=== PATIENT | male | born 1955 | race Caucasian/White ===

== ENCOUNTER 2024-10-03 10:32 | Outpatient (AMB) | payer MEDICARE, BC, SELFPAY ==
[2024-10-03 11:38] VITALS: BP 143/78; PULSE 73; RESP 18; TEMP 36.4; O2SAT 97; BMI 34.6
--- NOTE | 2024-10-03 11:38 | PD.ORTHCLVIS ---
Vital signs 10/03/24 11:38 Height 1.85 m Height Method Stated Weight 119.011 kg Weight Measurement Method Standing Scale BMI 34.6 BP 143/78 H Blood Pressure Source Automatic Cuff Blood Pressure Location Right Upper Arm Position Sitting Respiration 18 Pulse 73 Pulse Source Monitor Temp 97.6 F Temp Source Temporal Artery Scan Pulse Oximetry (%) 97 Oxygen Delivery Method Room Air Med/Allergies Allergies & Medications Allergies No Known Drug Allergies Allergy (Verified 10/03/24 11:39) Medication Reconciliation meloxicam 15 mg tablet 15 mg PO QDAY 10/03/24 [History Confirmed 10/03/24] tamsulosin 0.4 mg capsule 0.4 mg PO QHS 10/03/24 [History Confirmed 10/03/24] Subjective Visit Visit for: new patient and knee Immunization / Flu Flu Vaccine in the Last 12 Months: Yes Flu Vaccine Exclusion Criteria: Already Received History of Present Illness Chief complaint: KNEE PAIN Emanuel is a pleasant 69-year-old male with bilateral knee pain worse on the left. This been ongoing for over 4 years. Has had multiple injections of both cortisone and gel. They only last for a short period time at this point. The pain is affecting his quality life and happiness. He reports that his knees have been curving inward quite a bit Pain Pain level (0-10): 8 Pain duration: CONSTANT Pain location: inside (medial), outside (lateral) and anterior Pain quality: sharp, dull and aching Pain timing: night, increases with activity and stairs Associated signs & symptoms: numbness, weakness and stiffness Ambulatory data Ambulatory device: none Treatments Number of previous injections: 3 Improvement with previous injections: Yes Improvement with PT: No Improvement with NSAIDS: n/a Review of Systems Review of Systems: All systems negative unless otherwise noted in HPI. Exam Exam Patient is in no acute distress and is cooperative with the examination today. Breathing is nonlabored. In no respiratory distress. Bilateral extremities were evaluated and demonstrates sensation intact to light touch. Palpable pedal pulses are present. No significant edema is present. Bilateral hips were examined. The patient has no pain with log roll of the hips. Internal rotation to 30 degrees and external rotation to 30 degrees is painless. Negative FADIR. The left knee was examined. The left knee is in [varus] alignment. Range of motion from [0-115] degrees. Knee is stable to varus and valgus as well as AP translation with <5mm. Patient has a [negative] McMurrays. There is [no] pain with patellofemoral compression and [no] crepitus noted. The knee is [tender] to palpation [medially]. The right knee was also examined. The right knee is in [varus] alignment. Range of motion from [0-120] degrees. Knee is stable to varus and valgus as well as AP translation with <5mm. Patient has a [negative] McMurrays. There is [no] pain with patellofemoral compression and [no] crepitus noted. The knee is [tender] to palpation [medially]. Bilateral knee x-rays demonstrates impressive varus deformity bilaterally. This is worse on the left compared to the right. There is marked obliteration of the medial joint space and osteophytes both medially and laterally Assessment and Plan Problem List (1) Degenerative arthritis of knee, bilateral: Status: Acute Plan: Patient is a 69-year-old male with bilateral knee pain and bilateral knee arthritis. We discussed nonoperative and operative options. Given the failure of conservative management and everything is tried including anti-inflammatories, cortisone, and gel injections, we recommend total knee replacement is a reasonable option. We will start on the left as this pain is significantly worse than the right The nature and purpose of the total knee replacement, alternative method(s) of treatment, the material risks involved, and the possibility of complications were fully explained to the patient. The patient does NOT have any of the following contraindications to TKA: - Active infection of the knee joint, OR - Active systemic bacteremia, OR - Active skin infection or open wound at surgical site, OR - Neuropathic arthritis, OR - Severe, rapidly progressive neurological disease, OR - Severe medical condition that makes risks of surgery outweigh the potential benefit The patient was told the most common risks and complications associated with a total knee replacement include, but are not limited to: blood clots in the leg, fatal pulmonary embolism, dislocation of the prosthesis, intraoperative and postoperative fractures of the femur or tibia, infection, failure of the prosthesis or grafting materials, complications from anesthesia, reactions to blood transfusions, postoperative leg length inequality, instability of the knee replacement, nerve damage or injury, vascular injury, delayed wound healing, infection, other injury or even . In addition, there are risks associated with anesthesia given during this operation. Also, the patient was told that after undergoing a total knee replacement there may still be persistent pain or disability. The patient was informed that the success of this operation in part depends upon the mechanical devices which are going to be implanted and that these devices can fail or malfunction, and may need to be repaired or replaced and there are no guarantees as to the longevity of this device or its parts and that it or its parts could fail prematurely. The patient was also notified that during the course of surgery, there may be a need to use bone graft from donors, and that any bone graft used will be carefully screened for communicable diseases, including AIDS, hepatitis, Arpit-Creutzfeldt, or other diseases, but despite the screening procedures, there is a small chance that they could contract one of these diseases. Finally, the patient was asked to follow completely and fully with all advice and recommended treatments, and that recovery and ultimate outcome are affected by their compliance with recommended treatment. We discussed the risks, benefits and treatment alternatives, and the patient is interested in proceeding with surgery. We will try to set this up as expeditiously as possible. Advanced Care Planning Discussion Advance care planning discussed with:: patient Office Procedures GNS Level of Care Nursing/Assessment Patient Status: Initial/New Patient Nursing Assessment/Reassesment: Medication Reconciliation, Update PMH in EMR and Vital Signs Coordination of Care: Complex Care and Chronic Disease 1-5, Education Complex Pt/Fam, Consent,records obtained, informed consent, Results/Orders obtained and Staff clarify orders New Patient Charge New Patient Point Assignment: 1094 New Patient Point Charge: HOSPITAL SUPERVISOR Level 3 ([id number]) Past Medical History Past Medical History Have you ever been diagnosed with any of the following: Genital/Urinary Problems Benign Prostatic Hyperplasia: Yes
== END 2024-10-03 11:50 | disposition home or self-care (01) ==
PROVIDERS: PCP Family Medicine; Referring Provider Family Medicine; Supervising Provider Orthopaedic Surgery Adult Reconstructive Orthopaedic Surgery; Visit Provider Orthopaedic Surgery Adult Reconstructive Orthopaedic Surgery
DX: M17.0 Bilateral primary osteoarthritis of knee (principal); M25.562 Pain in left knee; M25.561 Pain in right knee
CPT/HCPCS: 99203; G0463

== ENCOUNTER → 2024-10-09 | Outpatient (CLI) | payer MEDICARE, BC, SELFPAY ==
--- NOTE | 2024-10-09 | XR_ITS ---
Examination: PA lateral chest 2 views TECHNIQUE: Upright PA lateral chest 2 views Exam date and time: October 09, 2024 1243 hours INDICATIONS: Preop knee surgery FINDINGS: Normal heart size. Lungs are clear. The osseous structures are intact IMPRESSION: No active disease
== END | disposition home or self-care (01) ==
PROVIDERS: PCP Family Medicine; Referring Provider Internal Medicine; Visit Provider Internal Medicine
DX: R05.9 Cough, unspecified (principal)
CPT/HCPCS: 71046

== ENCOUNTER → 2024-10-16 | Outpatient (CLI) | payer MEDICARE, BC, SELFPAY ==
--- NOTE | 2024-10-16 07:30 | XR_ITS ---
Examination: CT left lower extremity, without contrast. 2-D sagittal reconstructions. 2-D coronal reconstructions. 3-D reconstructions. Date and time of exam:October 16, 2024 0749 hours INDICATIONS: Left knee pain beginning 5 years ago CTDI: vol (mGy):14.4 DLP: (mGycm):1241 Technique: Multiple 1.25 mm axial sections of the left lower extremity have been obtained. 2-D sagittal and coronal reconstructions have been obtained. 3-D reconstructions have been obtained. Low dose protocols were performed. One or more of the following dose reduction techniques were used; automated exposure control, adjustment of the mA and/or KV according to patient size, use of iterative reconstruction technique. Findings: Moderate osteopenia Mild to moderate narrowing left hip joint No left hip fracture or dislocation Advanced tricompartment osteoarthritis including severe narrowing medial joint space No knee fracture IMPRESSION: Advanced tricompartment osteoarthritis left knee
== END | disposition home or self-care (01) ==
LOC: CCTX 07:11
PROVIDERS: PCP Family Medicine; Referring Provider Orthopaedic Surgery Adult Reconstructive Orthopaedic Surgery; Visit Provider Orthopaedic Surgery Adult Reconstructive Orthopaedic Surgery
DX: M17.12 Unilateral primary osteoarthritis, left knee (principal)
CPT/HCPCS: 73700

== ENCOUNTER → 2024-10-27 | Outpatient (CLI) | payer MEDICARE, BC, SELFPAY ==
--- NOTE | 2024-10-27 14:02 | XR_ITS ---
Examination: CT left lower extremity, without contrast. 2-D sagittal reconstructions. 2-D coronal reconstructions. 3-D reconstructions. Date and time of exam: October 27, 2024 1420 hours INDICATIONS: Left knee pain osteoarthritis years CTDI: vol (mGy):34.31 DLP: (mGycm):1225 Technique: Multiple 1.25 mm axial sections of the left lower extremity without intravenous contrast have been obtained. 2-D sagittal and coronal reconstructions have been obtained. 3-D reconstructions have been obtained. Low dose protocols were performed. One or more of the following dose reduction techniques were used; automated exposure control, adjustment of the mA and/or KV according to patient size, use of iterative reconstruction technique. Findings: Moderate osteopenia Moderate narrowing left hip joint No left hip fracture or dislocation No avascular necrosis Left knee advanced tricompartment osteoarthritis Severe narrowing medial joint space No fracture No patellar dislocation IMPRESSION: Advanced left knee tricompartment osteoarthritis, including severe narrowing medial joint space
== END | disposition home or self-care (01) ==
PROVIDERS: PCP Family Medicine; Referring Provider Orthopaedic Surgery Adult Reconstructive Orthopaedic Surgery; Visit Provider Orthopaedic Surgery Adult Reconstructive Orthopaedic Surgery
DX: M17.12 Unilateral primary osteoarthritis, left knee (principal); M25.862 Other specified joint disorders, left knee
CPT/HCPCS: 73700

== ENCOUNTER 2024-11-03 07:00 | Day surgery (SDC) | payer MEDICARE, BC, SELFPAY ==
[2024-10-31 10:44] VITALS: BMI 34.9
[2024-10-31 11:37] LABS: Basophils # (Auto) 0.1 Thou/mm3 (0.0-0.2); Basophils % (Auto) 1 % (0-2.5); Eosinophils # (Auto) 0.2 Thou/mm3 (0.0-0.5); Eosinophils % (Auto) 3 % (0-10); Hematocrit 40.8 % (41.0-53.0); Hemoglobin 13.8 g/dL (13.5-16.0); Immature Granulocytes % (Auto) 1 % (0-0); Immature Granulocytes Auto 0.03 Thou/mm3 (0.00-0.00); Lymphocytes # (Auto) 1.3 Thou/mm3 (1.0-4.8); Lymphocytes % (Auto) 20 % (10-50); Mean Corpuscular HGB Conc 33.8 g/dl (31.0-37.0); Mean Corpuscular Hemoglobin 31.4 pg (25.0-35.0); Mean Corpuscular Volume 93 fL (80-100); Monocytes # (Auto) 0.7 Thou/mm3 (0.0-0.8); Monocytes % (Auto) 11 % (0-12); Neutrophils # (Auto) 4.2 Thou/mm3 (1.8-7.7); Neutrophils % (Auto) 64 % (37-80); Nucleated Red Blood Cell % 0 /100 WBC (0); Platelet Count 246 Thou/mm3 (140-440); RDW Standard Deviation 42.8 fL (35.1-43.9); White Blood Count 6.6 Thou/mm3 (3.8-10.6)
[2024-10-31 11:48] LABS: INR 0.9 (0.9-1.3); Partial Thromboplastin Time 27.1 Seconds (22.0-36.0); Prothrombin Time 10.3 Seconds (9.0-12.2)
[2024-10-31 12:17] LABS: Alanine Aminotransferase 24 U/L (10-49); Albumin, Serum 4.2 gm/dL (3.4-4.8); Albumin/Globulin Ratio 1.8 (1.2-2.2); Alkaline Phosphatase 81 U/L (46-116); Anion Gap 7 (7-16); Aspartate Amino Transferase 24 U/L (0-34); BUN/Creatinine Ratio 21 Ratio (12-20); Bilirubin,Total 0.4 mg/dL (0.3-1.2); Blood Urea Nitrogen 21 mg/dL (9-23); Calcium 9.4 mg/dL (8.3-10.6); Calcium (Corrected) 9.4 mg/dL (8.5-10.1); Carbon Dioxide 27.2 mMol/L (20.0-31.0); Chloride 106 mMol/L (98-107); Estimated Creatinine Clearance 97.4 mL/min (>60); Globulin 2.3 gm/dL (2.3-3.5); Glucose 75 mg/dL (74-106); Osmolality,Calculated 281 (275-295); Potassium 4.6 mMol/L (3.4-5.1); Sodium 140 mMol/L (136-145); Total Protein 6.5 gm/dL (5.7-8.2); eGFR > 60 See Note
[2024-11-03] VITALS (12 sets, daily range): BP systolic 137–178; BP diastolic 71–98; PULSE 66–84; RESP 13–20; TEMP 36.2–36.6; O2SAT 97–99; BMI 34.3
[2024-11-03] MEDS: ACETAMINOPHEN 325 MG TABLET 650 MG PO (07:22)
[2024-11-03] MEDS: PREGABALIN 75 MG CAPSULE PO (07:23)
[2024-11-03] MEDS: MELOXICAM 7.5 MG TABLET PO (07:23)
[2024-11-03] MEDS: RINGERS LACTATED 1000 ML 1,000 ML 20 ML IV (07:24)
--- NOTE | 2024-11-03 10:30 | ESOP_ITS ---
Date of Procedure 11/03/24 Pre Op Diagnosis left knee osteoarthritis Post Op Diagnosis left knee osteoarthritis Procedure left total knee replacement Findings full thickness cartilage loss and extensive osteophytes Procedure Description Indication: The patient is a 69 year old who has a long history of left knee pain. X-rays show degenerative arthritis involving the knee. Over the past several years the patient has had increasing pain, progressive limitation in function. He has failed conservative measures including activity modification, physical therapy, injections, anti-inflammatories, and assistive devices. After a lengthy discussion of the risks and benefits, the patient presents now for total knee replacement. The nature and purpose of the total knee replacement, alternative method(s) of treatment, the material risks involved, and the possibility of complications were fully explained to the patient. The patient was told the most common risks and complications associated with a total knee replacement include, but are not limited to blood clots in the leg, fatal pulmonary embolism, dislocation of the prosthesis, intraoperative and postoperative fractures of the femur or tibia, infection, failure of the prosthesis or grafting materials, complications from anesthesia, reactions to blood transfusions, postoperative leg length inequality, instability of the knee replacement, nerve damage or injury, vascular injury, delayed wound healing, infections, other injury or even . In addition, there are risks associated with anesthesia given during this operation, temporary or permanent numbness on the skin lateral to the incision can be a complication unique to total knee surgery, and kneeling can be painful after knee replacement surgery. Also, the patient was told that after undergoing a total knee replacement there may still be pain or disability. We discussed with the patient that we will be using a robot-assisted technology. We discussed that there is a possibility of converting to manual instrumentation. The patient was informed that the success of this operation in part depends upon the mechanical devices which are going to be implanted and that these devices can fail or malfunction, and may need to be repaired or replaced and there are no guarantees as to the longevity of this device or its part and that it or its parts could fail prematurely. Finally, the patient was asked to follow completely and fully with all advice and recommended treatments, and that recovery and ultimate outcome are affected by their compliance with recommended treatment. Surgical technique: Patient was marked and consented in the pre-operative area. The patient was brought to the operating room and placed on the operating table in a supine position. Prior to positioning, a timeout procedure was performed between the surgeon, the anesthesiologist, and the nursing staff where the patient and the operative side were identified and confirmed. After adequate general anesthetic was obtained, the left lower extremity was prepped and draped in the usual sterile fashion. A weight based dose of Cefazolin were administered within 1 hour prior to incision. The robot was preregistered and calirated before the incision. The extremity was exsanguinated with an esmarch badge and tourniquet inflated to 250mmHg. A midline incision was made. A median parapatellar arthrotomy was made. The patella was subluxed laterally. A medial release was performed to expose the medial tibia. His femoral and tibial pins were placed through an intra incisional manner for both cases. Every effort was made to ensure that the distalmost aspect of the pin was hung in the second cortex. The arrays were then tightened several times to ensure that it was fixed for the remainder of the case. Both femoral and tibial checkpoints were then placed. We then went through the registration process of the bone. We then assessed the knee deformity and attempted to correct it. We also used the robot to aid in judging laxity in both extension and flexion. Final based on laxity and alignment we changed the preoperative assessment to obtain proper proper implant positioning and to correct deformity. Attention was then placed to the tibia. We made a tibial cut using the robot ensuring that both the MCL and the patella tendon were protected with retractors. We then went to the femur and made the posterior cut followed by the anterior cut and the anterior chamfer. The bone was then removed and we made a distal femur cut and a posterior chamfer cut. We verified all cuts. A trial reduction was performed with a size 6 femoral component and a size 6 keeled tibial component. The patella tracked centrally, and no lateral retinacular release was necessary. The trial implants were removed. The arrays, pins, and checkpoints were all removed. We performed a verification that all pins were removed. The cut bone surfaces were lavaged. A size 6 left femoral component, a size 6 keeled tibial component were impacted into position. The knee was felt to be well balanced in the sagittal and coronal plane. The final 6x10 mm cruciate- substituting articular insert was impacted into the tibial tray. The knee was brought out to full extension, flexed up to 120 degrees. It was stable to varus and valgus stress and appropriately balanced in flexion and extension. The wounds were copiously irrigated following deflation of tourniquet. The medial retinaculum was reapproximated with #1 vicryl and quill. The subcutaneous tissues were closed with 0 and 2-0 interrupted Vicryl. The skin was closed with 3-0 Monofilament V loc suture. A sterile dressing was applied. The patient was transferred to a bed and brought to recovery in stable condition. The patient tolerated the procedure well. There were no intraoperative complications. Sponge and needle counts were correct times 2. As the attending surgeon, Brianna perrin I was present and performed the entire operation. Grafts/Implants Size 6 CR Femur Size 6 Tibia 10mm poly CS Anesthesia spinal Drains none Implants aniya Pathology / specimen None Estimated Blood Loss 150 Condition Stable Disposition same day Surgeon Too Thomas MD Surgical Staff Operation Date: 11/03/24 10:30 Case Staff TECHNICAL SOURCING RECRUITER: Jonathan Romano RN First Assistant: Indu Angulo
--- NOTE | 2024-11-03 10:39 | XR_ITS ---
Examination: Left knee 2 views Technique one AP lateral left knee 2 views Exam date and time: November 03, 2024 1104 hours INDICATIONS: Postop knee arthroplasty FINDINGS: Prominent osteopenia Total left knee arthroplasty. Satisfactory alignment No fracture IMPRESSION: Total left knee arthroplasty with satisfactory alignment
--- NOTE | 2024-11-03 10:53 | SUR.PHASEI ---
1053: Pt. AAOx4, vitals stable, breathing unlabored, no complaint of pain or nausea, dressing to left knee CDI, no active bleed noted, pt. able to wiggle bilateral toes, dorsalis pedis pulses strong and regular bilaterally, cap refill to bilateral feet less than 3 seconds, report received from Ruslan JAFFE and Melissa LUCAS.
--- NOTE | 2024-11-03 12:56 | SUR.PHASEII ---
1256 Report received from Triny LUCAS, to assume care over patient
--- NOTE | 2024-11-03 12:56 | SUR.PHASEII ---
1256: Report given to Alissa Prather RN, pt. AAOx4, vitals stable, breathing unlabored, no complaint of pain or nausea, dressing to left knee CDI, no active bleed noted, pt. waiting for PT.
--- NOTE | 2024-11-03 13:13 | SUR.PHASEII ---
1313 patient cleared by PT to proceed with discharge
--- NOTE | 2024-11-03 13:20 | SUR.PHASEII ---
1320 Patient meets discharge criteria from recovery, awake and alert, breathing unlabored, vital signs stable, denies pain, dressing intact; no bleeding noted, denies nausea, patient voided in the restroom prior to discharge, patient assisted with dressing into his clothing by his partner, discharge instructions given to patient and patients partner, partner signed discharge instructions. Patient given all his belongings, prior to discharge, transported via wheelchair and left in a private vehicle.
== END 2024-11-03 13:20 | disposition home or self-care (01) ==
PROVIDERS: Anesthesiology; PCP Family Medicine; Referring Provider Orthopaedic Surgery Adult Reconstructive Orthopaedic Surgery; Visit Provider Orthopaedic Surgery Adult Reconstructive Orthopaedic Surgery
PROC: (CPT 27447; principal; 2024-11-03 10:15)
DX: M17.12 Unilateral primary osteoarthritis, left knee (principal); M25.762 Osteophyte, left knee
CPT/HCPCS: 27447; 20985; 36415; 73560; 80053; 85025; 85610; 85730; 97162; A4217; C1713; C1776; J0171; J0690; J1100; J1200; J1885; J2405; J2704; J2795; J3010; J3490; J7030; J7120; A4648; A4649; A9270

== ENCOUNTER 2024-11-18 10:56 | Outpatient (AMB) | payer MEDICARE, BC, SELFPAY ==
--- NOTE | 2024-11-18 11:14 | PD.ORTHCLVIS ---
Vital signs 11/18/24 11:15 Height 1.85 m Height Method Stated Weight 116.205 kg Weight Measurement Method Standing Scale BMI 33.9 BP 144/76 H Blood Pressure Source Automatic Cuff Blood Pressure Location Left Upper Arm Position Sitting Respiration 19 Pulse 81 Pulse Source Monitor Temp 98.4 F Temp Source Temporal Artery Scan Pulse Oximetry (%) 96 Oxygen Delivery Method Room Air Med/Allergies Allergies & Medications Allergies No Known Drug Allergies Allergy (Verified 11/18/24 11:21) Medication Reconciliation meloxicam 15 mg tablet 15 mg PO QDAY 10/03/24 [History Confirmed 11/18/24] tamsulosin 0.4 mg capsule 0.4 mg PO QHS 10/03/24 [History Confirmed 11/18/24] acetaminophen 500 mg tablet (Acetaminophen Extra Strength) 1,000 mg (2 x 500 mg) PO Q6H PRN pain #90 tabs 11/03/24 [Rx Confirmed 11/18/24] aspirin 81 mg tablet,delayed release 81 mg PO BID #60 tabs 11/03/24 [Rx Confirmed 11/18/24] doxycycline hyclate 100 mg tablet 100 mg PO BID #14 tabs 11/03/24 [Rx Confirmed 11/18/24] gabapentin 300 mg capsule 300 mg PO .qhs #30 caps 11/03/24 [Rx Confirmed 11/18/24] oxycodone 5 mg tablet 5 mg PO Q6H PRN pain #28 tabs 11/03/24 [Rx Confirmed 11/18/24] sennosides 8.6 mg-docusate sodium 50 mg tablet (Senna-S) 1 tab-cap PO QDAY #30 tabs 11/03/24 [Rx Confirmed 11/18/24] Exam Exam Patient is in no acute distress and is cooperative with the examination today. Breathing is nonlabored. In no respiratory distress. Bilateral extremities were evaluated and demonstrates sensation intact to light touch. Palpable pedal pulses are present. No significant edema is present. Bilateral hips were examined. The patient has no pain with log roll of the hips. Internal rotation to 30 degrees and external rotation to 30 degrees is painless. Negative FADIR. Left knee incision is clean dry and intact., Assessment and Plan Problem List (1) Degenerative arthritis of knee, bilateral: Status: Acute Plan: Patient is a 69-year-old male with bilateral knee pain and bilateral knee arthritis. He is status post left total knee replacement and is doing well. He has minimal pain. Advanced Care Planning Discussion Advance care planning discussed with:: patient Office Procedures GNS Level of Care Nursing/Assessment Patient Status: Established Patient Nursing Assessment/Reassesment: Medication Reconciliation, Update PMH in EMR and Vital Signs Coordination of Care: Complex Care and Chronic Disease 1-5, Education Complex Pt/Fam, Consent,records obtained, informed consent, Results/Orders obtained and Staff clarify orders Established Patient Charge Established Patient Point Assignment: 95 Established Patient Point Charge: EP Level 3 (80-115) HI Intake Visit Data Collection New Patient or Established: Established Patient (seen at [facility] within 3 years) Reason for Visit:: F/U L TKA Starch Cooker Required: No PCP or OBGYN visit in last 3 months: Yes Hx Now: No Do You Feel Safe at Home: Yes Authorities Contacted: N/A Questionairres Past Medical History Past Medical History Have you ever been diagnosed with any of the following: Neurological Problems Seizures: No Cardiology Problems Congestive Heart Failure: No Respiratory Problems Chronic Obstructive Pulmonary Disease (COPD): No Stomache/Intestinal Problems Obesity: Yes Genital/Urinary Problems Renal Disease: No Benign Prostatic Hyperplasia: Yes Musculoskeletal Problems Arthritis: Yes Fractures: Yes (nose, marcial elbow, right wrist) Endocrine Problems Diabetes Mellitus Type 1: No Diabetes Mellitus Type 2: No Other Problems Hospitalization: Yes Shingles: No Blood Transfusions: No Anesthesia Reactions: No Measles: Yes Mumps: Yes Cancer: No Subjective Visit Visit for: follow up visit and knee Immunization / Flu Flu Vaccine in the Last 12 Months: No Flu Vaccine Exclusion Criteria: No Exclusion Criteria History of Present Illness Chief complaint: Left knee pain Emanuel is a 69-year-old male who is status post left total knee replacement. He is 2weeks postop and is doing very Pain Pain level (0-10): 2 Associated signs & symptoms: none Ambulatory data Ambulatory device: cane Treatments Improvement with previous injections: No Improvement with PT: No Improvement with NSAIDS: no Review of Systems Review of Systems: All systems negative unless otherwise noted in HPI.
[2024-11-18 11:15] VITALS: BP 144/76; PULSE 81; RESP 19; TEMP 36.9; O2SAT 96; BMI 33.9
== END 2024-11-18 11:23 | disposition home or self-care (01) ==
LOC: HODSRG 10:56
PROVIDERS: PCP Family Medicine; Referring Provider Family Medicine; Supervising Provider Orthopaedic Surgery Adult Reconstructive Orthopaedic Surgery; Visit Provider Orthopaedic Surgery Adult Reconstructive Orthopaedic Surgery
DX: M17.0 Bilateral primary osteoarthritis of knee (principal); M25.562 Pain in left knee; M25.561 Pain in right knee; Z96.652 Presence of left artificial knee joint
CPT/HCPCS: 99213; G0463

== ENCOUNTER → 2024-12-25 | Outpatient (CLI) | payer MEDICARE, BC, SELFPAY ==
--- NOTE | 2024-12-25 16:22 | XR_ITS ---
Examination: Left knee 4 views Technique: AP oblique lateral axial left knee 4 views Exam date and time: December 25, 2024 at 1631 hrs. Indications: Left knee with placement April 03, 2025 Findings: Total left knee arthroplasty. Satisfactory alignment No patellar dislocation No fracture Impression: Total left knee arthroplasty with satisfactory alignment
== END | disposition home or self-care (01) ==
PROVIDERS: PCP Family Medicine; Referring Provider Orthopaedic Surgery Adult Reconstructive Orthopaedic Surgery; Visit Provider Orthopaedic Surgery Adult Reconstructive Orthopaedic Surgery
DX: M17.12 Unilateral primary osteoarthritis, left knee (principal); Z96.652 Presence of left artificial knee joint
CPT/HCPCS: 73564

== ENCOUNTER 2024-12-26 09:52 | Outpatient (AMB) | payer MEDICARE, BC, SELFPAY ==
[2024-12-26 10:08] VITALS: BP 147/70; PULSE 78; RESP 19; TEMP 36.4; O2SAT 97; BMI 34.9
--- NOTE | 2024-12-26 10:08 | PD.ORTHCLVIS ---
Vital signs 12/26/24 10:08 Height 1.85 m Height Method Stated Weight 119.55 kg Weight Measurement Method Standing Scale BMI 34.9 BP 147/70 H Blood Pressure Source Automatic Cuff Blood Pressure Location Right Upper Arm Position Sitting Respiration 19 Pulse 78 Pulse Source Monitor Temp 97.5 F Temp Source Temporal Artery Scan Pulse Oximetry (%) 97 Oxygen Delivery Method Room Air Med/Allergies Allergies & Medications Allergies No Known Drug Allergies Allergy (Verified 12/26/24 10:08) Medication Reconciliation meloxicam 15 mg tablet 15 mg PO QDAY 10/03/24 [History Confirmed 12/26/24] tamsulosin 0.4 mg capsule 0.4 mg PO QHS 10/03/24 [History Confirmed 12/26/24] acetaminophen 500 mg tablet (Acetaminophen Extra Strength) 1,000 mg (2 x 500 mg) PO Q6H PRN pain #90 tabs 11/03/24 [Rx Confirmed 12/26/24] aspirin 81 mg tablet,delayed release 81 mg PO BID #60 tabs 11/03/24 [Rx Confirmed 12/26/24] doxycycline hyclate 100 mg tablet 100 mg PO BID #14 tabs 11/03/24 [Rx Confirmed 12/26/24] gabapentin 300 mg capsule 300 mg PO .qhs #30 caps 11/03/24 [Rx Confirmed 12/26/24] oxycodone 5 mg tablet 5 mg PO Q6H PRN pain #28 tabs 11/03/24 [Rx Confirmed 12/26/24] sennosides 8.6 mg-docusate sodium 50 mg tablet (Senna-S) 1 tab-cap PO QDAY #30 tabs 11/03/24 [Rx Confirmed 12/26/24] Exam Exam Patient is in no acute distress and is cooperative with the examination today. Breathing is nonlabored. In no respiratory distress. Bilateral extremities were evaluated and demonstrates sensation intact to light touch. Palpable pedal pulses are present. No significant edema is present. Bilateral hips were examined. The patient has no pain with log roll of the hips. Internal rotation to 30 degrees and external rotation to 30 degrees is painless. Negative FADIR. Left knee incision is clean dry and intact., Range of motion is 0 to 100 degrees Assessment and Plan Problem List (1) Degenerative arthritis of knee, bilateral: Status: Acute Plan: Patient is a 69-year-old male with bilateral knee pain and bilateral knee arthritis. He is status post left total knee replacement and is doing well. He has minimal pain On the left knee. For his right knee, he has significant arthritis that is affecting his quality life and happiness. We thus discussed total knee replacement as a reasonable option. The nature and purpose of the total knee replacement, alternative method(s) of treatment, the material risks involved, and the possibility of complications were fully explained to the patient. The patient does NOT have any of the following contraindications to TKA: - Active infection of the knee joint, OR - Active systemic bacteremia, OR - Active skin infection or open wound at surgical site, OR - Neuropathic arthritis, OR - Severe, rapidly progressive neurological disease, OR - Severe medical condition that makes risks of surgery outweigh the potential benefit The patient was told the most common risks and complications associated with a total knee replacement include, but are not limited to: blood clots in the leg, fatal pulmonary embolism, dislocation of the prosthesis, intraoperative and postoperative fractures of the femur or tibia, infection, failure of the prosthesis or grafting materials, complications from anesthesia, reactions to blood transfusions, postoperative leg length inequality, instability of the knee replacement, nerve damage or injury, vascular injury, delayed wound healing, infection, other injury or even . In addition, there are risks associated with anesthesia given during this operation. Also, the patient was told that after undergoing a total knee replacement there may still be persistent pain or disability. The patient was informed that the success of this operation in part depends upon the mechanical devices which are going to be implanted and that these devices can fail or malfunction, and may need to be repaired or replaced and there are no guarantees as to the longevity of this device or its parts and that it or its parts could fail prematurely. The patient was also notified that during the course of surgery, there may be a need to use bone graft from donors, and that any bone graft used will be carefully screened for communicable diseases, including AIDS, hepatitis, Arpit-Creutzfeldt, or other diseases, but despite the screening procedures, there is a small chance that they could contract one of these diseases. Finally, the patient was asked to follow completely and fully with all advice and recommended treatments, and that recovery and ultimate outcome are affected by their compliance with recommended treatment. We discussed the risks, benefits and treatment alternatives, and the patient is interested in proceeding with surgery. We will try to set this up as expeditiously as possible. Advanced Care Planning Discussion Advance care planning discussed with:: patient and spouse Office Procedures GNS Level of Care Nursing/Assessment Patient Status: Established Patient Nursing Assessment/Reassesment: Medication Reconciliation, Update PMH in EMR and Vital Signs Coordination of Care: Complex Care and Chronic Disease 1-5, Education Complex Pt/Fam, Consent,records obtained, informed consent, 2-3 Insurance Autorizations needed, Results/Orders obtained and Staff clarify orders Established Patient Charge Established Patient Point Assignment: 115 Established Patient Point Charge: EP Level 3 (80-115) MA Intake Visit Data Collection New Patient or Established: Established Patient (seen at [facility] within 3 years) Reason for Visit:: 6 WEEK TKA Seen by Clinical Staff ONLY (RN/MA): No Verbal consent obtained for Telemed visit?: No Contact Center Analyst Required: No PCP or OBGYN visit in last 3 months: Yes Hx Now: No Do You Feel Safe at Home: Yes Authorities Contacted: N/A Questionairres Past Medical History Past Medical History Have you ever been diagnosed with any of the following: Neurological Problems Seizures: No Cardiology Problems Congestive Heart Failure: No Respiratory Problems Chronic Obstructive Pulmonary Disease (COPD): No Smoking: No Smoking Exposure: No Stomache/Intestinal Problems Obesity: Yes Genital/Urinary Problems Renal Disease: No Benign Prostatic Hyperplasia: Yes Musculoskeletal Problems Arthritis: Yes Fractures: Yes (nose, marcial elbow, right wrist) Endocrine Problems Diabetes Mellitus Type 1: No Diabetes Mellitus Type 2: No Other Problems Hospitalization: Yes Shingles: No Blood Transfusions: No Anesthesia Reactions: No Measles: Yes Mumps: Yes Cancer: No Subjective Visit Visit for: post op #1 and knee Immunization / Flu Flu Vaccine in the Last 12 Months: No Flu Vaccine Exclusion Criteria: No Exclusion Criteria History of Present Illness Chief complaint: 6 WEEK F/U KNEE TKA Yohannes is 6-week status post left total knee replacement and is doing fantastic. He reports his right knee hurts significantly more now and wants to get it replaced. We have tried injections and anti-inflammatories in the past and conservative treatment. We thus discussed this is reasonable given how rapidly he is recovered from his left knee Personal History Red flag PMH: BMI BMI Counceling provided: Yes Pain Pain level (0-10): 0 Treatments Improvement with previous injections: No Improvement with PT: No Improvement with NSAIDS: no Review of Systems Review of Systems: All systems negative unless otherwise noted in HPI.
== END 2024-12-26 10:13 | disposition home or self-care (01) ==
LOC: HODSRG 09:52
PROVIDERS: PCP Family Medicine; Referring Provider Family Medicine; Supervising Provider Orthopaedic Surgery Adult Reconstructive Orthopaedic Surgery; Visit Provider Orthopaedic Surgery Adult Reconstructive Orthopaedic Surgery
DX: M17.0 Bilateral primary osteoarthritis of knee (principal); Z96.652 Presence of left artificial knee joint
CPT/HCPCS: 73564; 99213; G0463

== ENCOUNTER → 2025-01-06 | Outpatient (CLI) | payer MEDICARE, BC, SELFPAY ==
--- NOTE | 2025-01-06 15:30 | XR_ITS ---
Examination: CT right lower extremity, without contrast. 2-D sagittal reconstructions. 2-D coronal reconstructions. 3-D reconstructions. Date and time of exam:January 06, 2025 1621 hrs. Indications: Diagnosis unilateral osteoarthritis right knee right knee pain 2 years CTDI: vol (mGy):13.6 DLP: (mGycm):1173 Technique: Multiple 1.25 mm axial sections of the right lower extremity without intravenous contrast have been obtained. 2-D sagittal and coronal reconstructions have been obtained. 3-D reconstructions have been obtained. Low dose protocols were performed. One or more of the following dose reduction techniques were used; automated exposure control, adjustment of the mA and/or KV according to patient size, use of iterative reconstruction technique. Findings: Moderate osteopenia Mild right hip osteoarthritis No hip fracture or hip dislocation No avascular process Severe right knee tricompartment osteoarthritis No patellar dislocation No fracture Impression: Severe right knee tricompartment osteoarthritis
== END | disposition home or self-care (01) ==
LOC: CCTX 15:09
PROVIDERS: PCP Family Medicine; Referring Provider Orthopaedic Surgery Adult Reconstructive Orthopaedic Surgery; Visit Provider Orthopaedic Surgery Adult Reconstructive Orthopaedic Surgery
DX: M17.11 Unilateral primary osteoarthritis, right knee (principal)
CPT/HCPCS: 73700

== ENCOUNTER 2025-01-12 06:50 | Day surgery (SDC) | payer MEDICARE, BC, SELFPAY ==
--- NOTE | 2025-01-09 06:45 | EKG_ITS ---
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
[2025-01-09 09:55] VITALS: BMI 34.2
[2025-01-09 11:35] LABS: Basophils # (Auto) 0.1 Thou/mm3 (0.0-0.2); Basophils % (Auto) 1 % (0-2.5); Eosinophils # (Auto) 0.1 Thou/mm3 (0.0-0.5); Eosinophils % (Auto) 2 % (0-10); Hemoglobin 13.9 g/dL (13.5-16.0); Immature Granulocytes % (Auto) 1 % (0-0); Immature Granulocytes Auto 0.04 Thou/mm3 (0.00-0.00); Lymphocytes # (Auto) 1.3 Thou/mm3 (1.0-4.8); Lymphocytes % (Auto) 18 % (10-50); Mean Corpuscular HGB Conc 33.1 g/dl (31.0-37.0); Mean Corpuscular Hemoglobin 30.2 pg (25.0-35.0); Mean Corpuscular Volume 91 fL (80-100); Monocytes # (Auto) 0.6 Thou/mm3 (0.0-0.8); Monocytes % (Auto) 9 % (0-12); Neutrophils % (Auto) 70 % (37-80); Nucleated Red Blood Cell % 0 /100 WBC (0); Platelet Count 271 Thou/mm3 (140-440); RDW Standard Deviation 43.6 fL (35.1-43.9); Red Blood Count 4.61 Miln/mm3 (4.50-5.90); White Blood Count 7.1 Thou/mm3 (3.8-10.6)
[2025-01-09 11:51] LABS: Partial Thromboplastin Time 27.9 Seconds (22.0-36.0); Prothrombin Time 10.5 Seconds (9.0-12.2)
[2025-01-09 11:52] LABS: Alanine Aminotransferase 25 U/L (10-49); Albumin, Serum 4.2 gm/dL (3.4-4.8); Albumin/Globulin Ratio 1.6 (1.2-2.2); Alkaline Phosphatase 84 U/L (46-116); Anion Gap 9 (7-16); Aspartate Amino Transferase 27 U/L (0-34); BUN/Creatinine Ratio 15 Ratio (12-20); Bilirubin,Total 0.6 mg/dL (0.3-1.2); Blood Urea Nitrogen 15 mg/dL (9-23); Calcium 9.2 mg/dL (8.3-10.6); Calcium (Corrected) 9.2 mg/dL (8.5-10.1); Chloride 103 mMol/L (98-107); Estimated Creatinine Clearance 96.4 mL/min (>60); Globulin 2.6 gm/dL (2.3-3.5); Glucose 106 mg/dL (74-106); Osmolality,Calculated 278 (275-295); Potassium 4.2 mMol/L (3.4-5.1); Sodium 139 mMol/L (136-145); Total Protein 6.8 gm/dL (5.7-8.2); eGFR > 60 See Note
[2025-01-12] VITALS (17 sets, daily range): BP systolic 120–158; BP diastolic 59–95; PULSE 62–85; RESP 13–20; TEMP 36.3–36.9; O2SAT 94–98; BMI 34.4
[2025-01-12] MEDS: PREGABALIN 75 MG CAPSULE PO (07:57)
[2025-01-12] MEDS: ACETAMINOPHEN 325 MG TABLET 650 MG PO (07:57)
[2025-01-12] MEDS: MELOXICAM 7.5 MG TABLET PO (07:57)
[2025-01-12] MEDS: RINGERS LACTATED 1000 ML 1,000 ML 20 ML IV (07:58)
--- NOTE | 2025-01-12 08:32 | SUR.PREOP ---
Patient expressed gratitude for prayer before their procedure
--- NOTE | 2025-01-12 11:05 | ESOP_ITS ---
Date of Procedure 01/12/25 Pre Op Diagnosis right knee osteoarthritis Post Op Diagnosis right knee osteoarthritis Procedure right total knee replacement kayla Findings full thickness cartilage loss and osteophytes Procedure Description Indication: The patient is a 69 year old who has a long history of right knee pain. X-rays show degenerative arthritis involving the knee. Over the past several years the patient has had increasing pain, progressive limitation in function. He has failed conservative measures including activity modification, physical therapy, injections, anti-inflammatories, and assistive devices. After a lengthy discussion of the risks and benefits, the patient presents now for total knee replacement. The nature and purpose of the total knee replacement, alternative method(s) of treatment, the material risks involved, and the possibility of complications were fully explained to the patient. The patient was told the most common risks and complications associated with a total knee replacement include, but are not limited to blood clots in the leg, fatal pulmonary embolism, dislocation of the prosthesis, intraoperative and postoperative fractures of the femur or tibia, infection, failure of the prosthesis or grafting materials, complications from anesthesia, reactions to blood transfusions, postoperative leg length inequality, instability of the knee replacement, nerve damage or injury, vascular injury, delayed wound healing, infections, other injury or even . In addition, there are risks associated with anesthesia given during this operation, temporary or permanent numbness on the skin lateral to the incision can be a complication unique to total knee surgery, and kneeling can be painful after knee replacement surgery. Also, the patient was told that after undergoing a total knee replacement there may still be pain or disability. We discussed with the patient that we will be using a robot-assisted technology. We discussed that there is a possibility of converting to manual instrumentation. The patient was informed that the success of this operation in part depends upon the mechanical devices which are going to be implanted and that these devices can fail or malfunction, and may need to be repaired or replaced and there are no guarantees as to the longevity of this device or its part and that it or its parts could fail prematurely. Finally, the patient was asked to follow completely and fully with all advice and recommended treatments, and that recovery and ultimate outcome are affected by their compliance with recommended treatment. Surgical technique: Patient was marked and consented in the pre-operative area. The patient was brought to the operating room and placed on the operating table in a supine position. Prior to positioning, a timeout procedure was performed between the surgeon, the anesthesiologist, and the nursing staff where the patient and the operative side were identified and confirmed. After adequate general anesthetic was obtained, the right lower extremity was prepped and draped in the usual sterile fashion. A weight based dose of Cefazolin were administered within 1 hour prior to incision. The robot was preregistered and calirated before the incision. The extremity was exsanguinated with an esmarch badge and tourniquet inflated to 250mmHg. A midline incision was made. A median parapatellar arthrotomy was made. The patella was subluxed laterally. A medial release was performed to expose the medial tibia. His femoral and tibial pins were placed through an intra incisional manner for both cases. Every effort was made to ensure that the distalmost aspect of the pin was hung in the second cortex. The arrays were then tightened several times to ensure that it was fixed for the remainder of the case. Both femoral and tibial checkpoints were then placed. We then went through the registration process of the bone. We then assessed the knee deformity and attempted to correct it. We also used the robot to aid in judging laxity in both extension and flexion. Final based on laxity and alignment we changed the preoperative assessment to obtain proper proper implant positioning and to correct deformity. Attention was then placed to the tibia. We made a tibial cut using the robot ensuring that both the MCL and the patella tendon were protected with retractors. We then went to the femur and made the posterior cut followed by the anterior cut and the anterior chamfer. The bone was then removed and we made a distal femur cut and a posterior chamfer cut. We verified all cuts. A trial reduction was performed with a size 6 femoral component and a size 6 keeled tibial component. The patella tracked centrally, and no lateral retinacular release was necessary. The trial implants were removed. The arrays, pins, and checkpoints were all removed. We performed a verification that all pins were removed. The cut bone surfaces were lavaged. A size 6 right femoral component, a size 6 keeled tibial component were impacted into position. The knee was felt to be well balanced in the sagittal and coronal plane. The final 6x11 mm cruciate- substituting articular insert was impacted into the tibial tray. The knee was brought out to full extension, flexed up to 120 degrees. It was stable to varus and valgus stress and appropriately balanced in flexion and extension. The wounds were copiously irrigated following deflation of tourniquet. The medial retinaculum was reapproximated with #1 vicryl and quill. The subcutaneous tissues were closed with 0 and 2-0 interrupted Vicryl. The skin was closed with 3-0 Monofilament V loc suture. A sterile dressing was applied. The patient was transferred to a bed and brought to recovery in stable condition. The patient tolerated the procedure well. There were no intraoperative complications. Sponge and needle counts were correct times 2. As the attending surgeon, I aydin I was present and performed the entire operation. Grafts/Implants Size 6 CR Femur Size 6 Tibia 11mm poly CS Anesthesia GETA and spinal Implants aniya Pathology / specimen None Pathology comment: none Estimated Blood Loss 150 Disposition same day Surgeon Too Thomas MD Surgical Staff Operation Date: 01/12/25 10:00 <No data on this case meets the specified criteria>
--- NOTE | 2025-01-12 11:08 | XR_ITS ---
Examination: Right knee 2 views Technique one AP lateral right knee 2 views Exam date and time: January 12, 2025 at 1118 hours INDICATIONS: Postop knee replacement FINDINGS: Right knee arthroplasty. Satisfactory alignment. No fracture IMPRESSION: Total right knee arthroplasty with satisfactory alignment
--- NOTE | 2025-01-12 11:36 | SUR.PHASEI ---
pt received from OR in recovery bay 1. pt awake and alert, breathing unlabored on room air. v/s stable. pt dressing to right lower extremity cdi. report received from Dr. Medrano and Indu LUCAS.
--- NOTE | 2025-01-12 12:01 | SUR.PHASEI ---
pt able to tolerate oral fluids without difficulty swallowing or nausea/vomiting.
--- NOTE | 2025-01-12 12:15 | SUR.PHASEII ---
pt awake, alert, able to follow commands, breathing unlabored, dressing to right lower extremity clean, dry, and intact, circulation to right toes within normal limits, report from Shan LUCAS
--- NOTE | 2025-01-12 12:45 | SUR.PHASEII ---
Report to Shan LUCAS
--- NOTE | 2025-01-12 15:45 | SUR.PHASEII ---
pt awake and alert, breathing unlabored on room air. v/s stable. pt dressing to
--- NOTE | 2025-01-12 15:45 | SUR.PHASEII ---
pt awake and alert, breathing unlabored on room air. v/s stable. pt dressing to right knee cdi. pt cleared by physical therapist Shawanda. pt able to ambulate to bathroom using walker with steady gait. d/c instructions given with s/o Nuria in room, all questions answered. pt d/c via wheelchair with all belongings.
--- NOTE | 2025-01-14 15:24 | PD.ANESPROG ---
Documentation for date of: 01/14/25 POST ANESTHESIA NOTE: Patient had spinal anesthesia and R adductor canal block and MAC for R TKA on 01/12/25. I just called and spoke with him on the phone and he reported the spinal took little longer to wear off this time than last but otherwise denied any problems from anesthesia and endorsed he is ambulating and urinating without problems. Demario Medrano MD Anesthesia Progress Note Progress Note Most recent Vital Signs: Last Vital Signs Temp 97.8 F 01/12/25 15:15 Pulse 80 01/12/25 15:15 Resp 17 01/12/25 15:15 BP 120/59 L 01/12/25 15:15 Pulse Ox 98 01/12/25 15:15
== END 2025-01-12 15:45 | disposition home or self-care (01) ==
PROVIDERS: Anesthesiology; PCP Family Medicine; Referring Provider Orthopaedic Surgery Adult Reconstructive Orthopaedic Surgery; Visit Provider Orthopaedic Surgery Adult Reconstructive Orthopaedic Surgery
PROC: (CPT 27447; principal; 2025-01-12 10:00)
DX: M17.11 Unilateral primary osteoarthritis, right knee (principal); M25.761 Osteophyte, right knee
CPT/HCPCS: 27447; 20985; 36415; 73560; 80053; 85025; 85610; 85730; 93005; 97162; A4217; C1713; C1776; J0690; J1100; J1200; J2250; J2371; J2704; J2795; J3010; J3490; J7030; J7120; J7999; A4648; A4649; A9270

== ENCOUNTER 2025-01-27 14:45 | Outpatient (AMB) | payer MEDICARE, BC, SELFPAY ==
[2025-01-27 14:57] VITALS: BP 120/74; PULSE 96; RESP 18; TEMP 36.8; O2SAT 96; BMI 61.1
--- NOTE | 2025-01-27 14:57 | PD.ORTHCLVIS ---
Vital signs 01/27/25 14:57 Height 1.38 m Height Method Stated Weight 116.375 kg Weight Measurement Method Standing Scale BMI 61.1 BP 120/74 Blood Pressure Source Automatic Cuff Blood Pressure Location Right Upper Arm Position Sitting Respiration 18 Pulse 96 Pulse Source Monitor Temp 98.2 F Temp Source Temporal Artery Scan Pulse Oximetry (%) 96 Oxygen Delivery Method Room Air Med/Allergies Allergies & Medications Allergies No Known Drug Allergies Allergy (Verified 01/27/25 15:04) Medication Reconciliation meloxicam 15 mg tablet 15 mg PO QDAY 10/03/24 [History Confirmed 01/27/25] tamsulosin 0.4 mg capsule 0.4 mg PO QHS 10/03/24 [History Confirmed 01/27/25] acetaminophen 500 mg tablet (Acetaminophen Extra Strength) 1,000 mg (2 x 500 mg) PO Q6H PRN pain #90 tabs 01/12/25 [Rx Confirmed 01/27/25] aspirin 81 mg tablet,delayed release 81 mg PO BID #60 tabs 01/12/25 [Rx Confirmed 01/27/25] doxycycline hyclate 100 mg tablet 100 mg PO BID #14 tabs 01/12/25 [Rx Confirmed 01/27/25] gabapentin 300 mg capsule 300 mg PO .qhs #30 caps 01/12/25 [Rx Confirmed 01/27/25] oxycodone 5 mg tablet 5 mg PO Q6H PRN pain #28 tabs 01/12/25 [Rx Confirmed 01/27/25] sennosides 8.6 mg-docusate sodium 50 mg tablet (Senna-S) 1 tab-cap PO QDAY #30 tabs 01/12/25 [Rx Confirmed 01/27/25] Exam Exam Patient is in no acute distress and is cooperative with the examination today. Breathing is nonlabored. In no respiratory distress. Bilateral extremities were evaluated and demonstrates sensation intact to light touch. Palpable pedal pulses are present. No significant edema is present. Bilateral hips were examined. The patient has no pain with log roll of the hips. Internal rotation to 30 degrees and external rotation to 30 degrees is painless. Negative FADIR. Left knee incision is clean dry and intact., Range of motion is 0 to 100 degrees Right knee incisions clean dry and intact. Range of motion 0 to 100 degrees Assessment and Plan Problem List (1) Degenerative arthritis of knee, bilateral: Status: Acute Plan: Patient is a 69-year-old male with bilateral knee pain and bilateral knee arthritis. He is doing well status post right total knee replacement. We will see him in approximately 6 weeks Advanced Care Planning Discussion Advance care planning discussed with:: patient and spouse Office Procedures GNS Level of Care Nursing/Assessment Patient Status: Established Patient Nursing Assessment/Reassesment: Medication Reconciliation, Update PMH in EMR and Vital Signs Coordination of Care: Complex Care and Chronic Disease 1-5, Education Complex Pt/Fam, Consent,records obtained, informed consent, 1 Ins Authorization, Ref for ancillary service, Results/Orders obtained and Staff clarify orders Established Patient Charge Established Patient Point Assignment: 130 Established Patient Point Charge: EP Level 4 (120-155) MA Intake Visit Data Collection New Patient or Established: Established Patient (seen at [facility] within 3 years) Reason for Visit:: 2 WEEK POST OP Seen by Clinical Staff ONLY (RN/MA): No Verbal consent obtained for Telemed visit?: No 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 PCP or OBGYN visit in last 3 months: Yes Hx Now: No Do You Feel Safe at Home: Yes Authorities Contacted: N/A Questionairres Past Medical History Past Medical History Have you ever been diagnosed with any of the following: Neurological Problems Seizures: No Cardiology Problems Congestive Heart Failure: No Respiratory Problems Chronic Obstructive Pulmonary Disease (COPD): No Smoking: No Smoking Exposure: No Stomache/Intestinal Problems Obesity: Yes Genital/Urinary Problems Renal Disease: No Benign Prostatic Hyperplasia: Yes Musculoskeletal Problems Arthritis: Yes Fractures: Yes (nose, marcial elbow, right wrist) Endocrine Problems Diabetes Mellitus Type 1: No Diabetes Mellitus Type 2: No Other Problems Hospitalization: Yes Shingles: No Blood Transfusions: No Blood Transfusion Reaction: No Anesthesia Reactions: No Measles: Yes Mumps: Yes Cancer: No Subjective Visit Visit for: post op #1 and knee Immunization / Flu Flu Vaccine in the Last 12 Months: No Flu Vaccine Exclusion Criteria: No Exclusion Criteria History of Present Illness Chief complaint: 6 WEEK F/U KNEE TKA Yohannes is 6-week status post left total knee replacement and is doing fantastic. He is 2 weeks postop for his right total knee replacement. He is doing well Personal History Red flag PMH: BMI BMI Counceling provided: Yes Pain Pain level (0-10): 0 Treatments Improvement with previous injections: No Improvement with PT: No Improvement with NSAIDS: no Review of Systems Review of Systems: All systems negative unless otherwise noted in HPI.
== END 2025-01-27 15:02 | disposition home or self-care (01) ==
LOC: HODSRG 14:45
PROVIDERS: PCP Family Medicine; Referring Provider Family Medicine; Supervising Provider Orthopaedic Surgery Adult Reconstructive Orthopaedic Surgery; Visit Provider Orthopaedic Surgery Adult Reconstructive Orthopaedic Surgery
DX: M17.0 Bilateral primary osteoarthritis of knee (principal); M25.562 Pain in left knee; M25.561 Pain in right knee; Z96.651 Presence of right artificial knee joint
CPT/HCPCS: 99214; G0463

== ENCOUNTER → 2025-02-18 | Outpatient (CLI) | payer MEDICARE, BC, SELFPAY ==
--- NOTE | 2025-02-18 10:05 | XR_ITS ---
Examination: Bilateral knees 2 views Right lateral knee left lateral knee 2 views Bilateral axial knees single view TECHNIQUE: Bilateral AP knees standing single view, bilateral PA knees standing single view flexion Standing right lateral knee left lateral knee 2 views Bilateral axial knees single view total 5 views Exam date and time: February 18, 2025 1027 hours INDICATIONS: Bilateral knee replacements, right-sided 2 months ago left side one month ago FINDINGS: Mild osteopenia. Bilateral total knee arthroplasties. Satisfactory alignment No loosening of the prosthetic components. No fractures. No patellar dislocation IMPRESSION: Bilateral total knee arthroplasties with satisfactory alignment
== END | disposition home or self-care (01) ==
PROVIDERS: PCP Family Medicine; Referring Provider Orthopaedic Surgery Adult Reconstructive Orthopaedic Surgery; Visit Provider Orthopaedic Surgery Adult Reconstructive Orthopaedic Surgery
DX: M17.0 Bilateral primary osteoarthritis of knee (principal); Z96.653 Presence of artificial knee joint, bilateral
CPT/HCPCS: 73564

== ENCOUNTER 2025-02-19 10:36 | Outpatient (AMB) | payer MEDICARE, BC, SELFPAY ==
[2025-02-19 10:46] VITALS: BP 155/79; PULSE 92; RESP 18; TEMP 36.3; O2SAT 98; BMI 34.4
--- NOTE | 2025-02-19 10:46 | ORTHONT_ITS ---
Vital signs 02/19/25 10:46 Height 1.85 m Height Method Stated Weight 117.934 kg Weight Measurement Method Standing Scale BMI 34.4 BP 155/79 H Blood Pressure Source Automatic Cuff Blood Pressure Location Right Upper Arm Position Sitting Respiration 18 Pulse 92 Pulse Source Monitor Temp 97.3 F Temp Source Temporal Artery Scan Pulse Oximetry (%) 98 Oxygen Delivery Method Room Air Med/Allergies Allergies & Medications Allergies No Known Drug Allergies Allergy (Verified 02/19/25 10:46) Medication Reconciliation meloxicam 15 mg tablet 15 mg PO QDAY 10/03/24 [History Confirmed 02/19/25] tamsulosin 0.4 mg capsule 0.4 mg PO QHS 10/03/24 [History Confirmed 02/19/25] acetaminophen 500 mg tablet (Acetaminophen Extra Strength) 1,000 mg (2 x 500 mg) PO Q6H PRN pain #90 tabs 01/12/25 [Rx Confirmed 02/19/25] aspirin 81 mg tablet,delayed release 81 mg PO BID #60 tabs 01/12/25 [Rx Confirmed 02/19/25] doxycycline hyclate 100 mg tablet 100 mg PO BID #14 tabs 01/12/25 [Rx Confirmed 02/19/25] gabapentin 300 mg capsule 300 mg PO .qhs #30 caps 01/12/25 [Rx Confirmed 02/19/25] oxycodone 5 mg tablet 5 mg PO Q6H PRN pain #28 tabs 01/12/25 [Rx Confirmed 02/19/25] sennosides 8.6 mg-docusate sodium 50 mg tablet (Senna-S) 1 tab-cap PO QDAY #30 tabs 01/12/25 [Rx Confirmed 02/19/25] Exam Exam Patient is in no acute distress and is cooperative with the examination today. Breathing is nonlabored. In no respiratory distress. Bilateral extremities were evaluated and demonstrates sensation intact to light touch. Palpable pedal pulses are present. No significant edema is present. Bilateral hips were examined. The patient has no pain with log roll of the hips. Internal rotation to 30 degrees and external rotation to 30 degrees is painless. Negative FADIR. Left knee incision is clean dry and intact., Range of motion is 0 to 100 degrees Right knee incisions clean dry and intact. Range of motion 0 to 100 degrees Bilateral knee x-rays demonstrates a cementless total knee replacement in good alignment and position Assessment and Plan Problem List (1) Degenerative arthritis of knee, bilateral: Status: Acute Plan: Patient is a 69-year-old male with bilateral knee pain and bilateral knee arthritis. He is doing well status post right total knee replacement. He is doing well and we will see him for routine follow-up Advanced Care Planning Discussion Advance care planning discussed with:: patient and spouse Office Procedures GNS Level of Care Nursing/Assessment Patient Status: Established Patient Nursing Assessment/Reassesment: Medication Reconciliation, Update PMH in EMR and Vital Signs Coordination of Care: Complex Care and Chronic Disease 1-5, Education Complex Pt/Fam, Consent,records obtained, informed consent, Lab and Imaging orders, Results/Orders obtained and Staff clarify orders Established Patient Charge Established Patient Point Assignment: 110 Established Patient Point Charge: Level 3 (80-115) MA Intake Visit Data Collection New Patient or Established: Established Patient (seen at [facility] within 3 years) Reason for Visit:: 6 WEEK POST OP TKA Seen by Clinical Staff ONLY (RN/MA): No Verbal consent obtained for Telemed visit?: No Printing Press Operator Required: No PCP or OBGYN visit in last 3 months: Yes Hx Now: No Do You Feel Safe at Home: Yes Authorities Contacted: N/A Questionairres Past Medical History Past Medical History Have you ever been diagnosed with any of the following: Neurological Problems Seizures: No Cardiology Problems Congestive Heart Failure: No Respiratory Problems Chronic Obstructive Pulmonary Disease (COPD): No Smoking: No Smoking Exposure: No Stomache/Intestinal Problems Obesity: Yes Genital/Urinary Problems Renal Disease: No Benign Prostatic Hyperplasia: Yes Musculoskeletal Problems Arthritis: Yes Fractures: Yes (nose, marcial elbow, right wrist) Endocrine Problems Diabetes Mellitus Type 1: No Diabetes Mellitus Type 2: No Other Problems Hospitalization: Yes Shingles: No Blood Transfusions: No Blood Transfusion Reaction: No Anesthesia Reactions: No Measles: Yes Mumps: Yes Cancer: No Subjective Visit Visit for: follow up visit and knee Immunization / Flu Flu Vaccine in the Last 12 Months: Yes Flu Vaccine Exclusion Criteria: No Exclusion Criteria History of Present Illness Chief complaint: 6 WEEKS POST OP Yohannes is 6-week status post left total knee replacement and is doing fantastic. He is 6 weeks postop for his right total knee replacement. He is doing well Personal History Occupation: DISABLED Red flag PMH: BMI BMI Counceling provided: Yes Pain Pain level (0-10): 1 Pain duration: COMES AND GOES Pain quality: dull Ambulatory data Ambulatory device: none Treatments Improvement with previous injections: No Improvement with PT: No Improvement with NSAIDS: no Review of Systems Review of Systems: All systems negative unless otherwise noted in HPI.
== END 2025-02-19 11:02 | disposition home or self-care (01) ==
LOC: HODSRG 10:36
PROVIDERS: PCP Family Medicine; Referring Provider Family Medicine; Supervising Provider Orthopaedic Surgery Adult Reconstructive Orthopaedic Surgery; Visit Provider Orthopaedic Surgery Adult Reconstructive Orthopaedic Surgery
DX: M17.0 Bilateral primary osteoarthritis of knee (principal); M25.562 Pain in left knee; M25.561 Pain in right knee; Z96.651 Presence of right artificial knee joint
CPT/HCPCS: 99213; G0463

== ENCOUNTER 2025-02-25 08:30 | Outpatient (RCR) | payer MEDICARE, BC, SELFPAY ==
--- NOTE | 2025-02-16 11:05 | PTNOTE_ITS ---
PT OP Initial Eval Patient Information Outpatient Physical Therapy Treatment Date: 02/16/25 Visit Reasons: s/p Bilateral TKA Medical Diagnosis: B TKA Treatment Dx #1: B knee pain Treatment Dx #2: Decreased ROM B knees Start of Care: 02/16/25 Date of Onset: 01/12/25 DOS R 11/03/24 DOS L Smoking Status Smoking Status: Never smoker Initial Assessment Subjective: Pt is 69 yr old male s/p B TKA most recent was the R knee in December. He is doing HEP and bending the knees well. The knees hurt with prolonged walking and standing. PLOF: pt was ambulating community distances without assistive device prior to onset of knee pain. PMH: B TKA, hearing loss Pt goal: wants to walk and hike in order to be in better shape to hike Objective: R knee AROM: L knee AROM: ? Flexion: 112 deg 110 deg ? Extension: -6 deg -3 deg ? SLR: ? full full ? Strength: ? Quads 4-/5 4/5 HS: 4/5 4/5 Gait: decreased R knee extension Assessment: Pt presentation consistent with post op B TKA with decreased ROM, strength ? and WB tolerance. Pt lacks a few degrees of knee extension on R and flexion is limited by ? myofascial limitations and pain.? Pt requires skilled therapy to improve ROM ? and function and has good rehab potential.? Eval followed by HEP with printout. Short Term and Chcf Goals 1. Independent with HEP 2. Improved B knee ROM to full extension to 115 deg flexion 3. Improved B quad and hamstring strength to 4+/5 4. Improved ambulatory tolerance to community distances with symmetrical ?? gait pattern.??? Treatment Plan 90 day POC 1. Manual therapy ? 2. Therex ? 3. Modalities as indicated, moist heat, ice, estim Frequency and Duration: 2x a week for 18 visits plus evaluation Certification Dates: 02/16/25 to 05/17/25 Procedure Charges OP PT Eval Mod Complex 30 minutes: Yes
--- NOTE | 2025-02-18 08:35 | PT.ODAYNRPT ---
PT Outpatient Daily Note OP Daily Note Outpatient Physical Therapy Treatment Date: 02/18/25 Visit Reasons: s/p Bilateral TKA Subjective: Same as time of evaluation Objective: See F/S for therex Assessment: Good strength with therex of B BLANCA'ary. Plan: Continue per POC Length of Time (minutes) of Treatment: 30 Minutes Procedure Charges Therapeutic Exercise 30 minutes: Yes
--- NOTE | 2025-02-23 18:17 | PT.ODAYNRPT ---
PT Outpatient Daily Note OP Daily Note Outpatient Physical Therapy Treatment Date: 02/23/25 Visit Reasons: s/p Bilateral TKA Subjective: Same as time of evaluation Objective: See F/S for therex Assessment: Good strength with therex of B LE's and low tissue irritability Plan: Continue per POC Length of Time (minutes) of Treatment: 30 Minutes Procedure Charges Therapeutic Exercise 30 minutes: Yes
--- NOTE | 2025-02-25 09:13 | PT.ODAYNRPT ---
PT Outpatient Daily Note OP Daily Note Outpatient Physical Therapy Treatment Date: 02/25/25 Visit Reasons: s/p Bilateral TKA Subjective: Doing HEP with better knee extension ROM Objective: See F/S for therex MHP during [facility] Assessment: Good improvement with knee extension during gait to heel strike at initial contact Plan: Continue per POC Length of Time (minutes) of Treatment: 30 Minutes Procedure Charges Therapeutic Exercise 30 minutes: Yes
== END 2025-02-25 23:59 | disposition home or self-care (01) ==
LOC: CPTX 08:30
PROVIDERS: PCP Orthopaedic Surgery Adult Reconstructive Orthopaedic Surgery; Referring Provider Orthopaedic Surgery Adult Reconstructive Orthopaedic Surgery; Visit Provider Orthopaedic Surgery Adult Reconstructive Orthopaedic Surgery
DX: M25.562 Pain in left knee (principal); M25.561 Pain in right knee; Z96.653 Presence of artificial knee joint, bilateral
CPT/HCPCS: 97110; 97162

== ENCOUNTER 2025-03-16 09:00 | Outpatient (RCR) | payer MEDICARE, BC, SELFPAY ==
--- NOTE | 2025-03-02 09:19 | PT.ODAYNRPT ---
PT Outpatient Daily Note OP Daily Note Outpatient Physical Therapy Treatment Date: 03/02/25 Visit Reasons: S/P BILATERAL TKA Subjective: Doing HEP with better knee extension ROM Objective: See F/S for therex Assessment: Good improvement with knee extension during gait to heel strike at initial contact Plan: Continue per POC Length of Time (minutes) of Treatment: 30 Minutes Procedure Charges Therapeutic Exercise 30 minutes: Yes
--- NOTE | 2025-03-04 10:23 | PT.ODAYNRPT ---
PT Outpatient Daily Note OP Daily Note Outpatient Physical Therapy Treatment Date: 03/04/25 Visit Reasons: S/P BILATERAL TKA Subjective: Doing HEP with better knee extension ROM Objective: See F/S for therex Assessment: Good improvement with knee extension during gait to heel strike at initial contact. PROM about -5 deg extension. Plan: Continue per POC Length of Time (minutes) of Treatment: 30 Minutes Procedure Charges Therapeutic Exercise 30 minutes: Yes
--- NOTE | 2025-03-09 11:12 | PT.ODAYNRPT ---
PT Outpatient Daily Note OP Daily Note Outpatient Physical Therapy Treatment Date: 03/09/25 Visit Reasons: S/P BILATERAL TKA Subjective: Doing HEP with stiffness while walking Objective: See F/S for therex Assessment: Good improvement with knee extension during gait to heel strike at initial contact. PROM about -5 deg extension. Plan: Continue per POC Length of Time (minutes) of Treatment: 30 Minutes Procedure Charges Therapeutic Exercise 30 minutes: Yes
--- NOTE | 2025-03-11 08:56 | PT.ODAYNRPT ---
PT Outpatient Daily Note OP Daily Note Outpatient Physical Therapy Treatment Date: 03/11/25 Visit Reasons: S/P BILATERAL TKA Subjective: Doing HEP with stiffness while walking Objective: See F/S for therex Assessment: Good improvement with knee extension during gait to heel strike at initial contact. PROM about -5 deg extension. Plan: Continue per POC Length of Time (minutes) of Treatment: 30 Minutes Procedure Charges Therapeutic Exercise 30 minutes: Yes
--- NOTE | 2025-03-16 10:31 | PT.ODS1RPT ---
PT OP Progress/Discharge Note Date of Service: 03/16/25 Progress Note/DC Note Progress Note/Discharge Note: DC Note Patient Information Visit Reasons: S/P BILATERAL TKA Service Continue Service or Discharge: Discharge Discharge Date: 03/16/25 Status Subjective: Doing HEP with less stiffness while walking and he can bend the R knee better. He is ready to be discharged from therapy. Objective: See F/S for therex R knee ArOM: Flexion: 115 deg Extension: full Strength: Quads: 4+/5 HS: 4+/5 Gait: symmetrical to L Assessment: Pt has attended the eval and 06/05 Rx sessions with very good improvement to meet therapy goals. Pt has improved knee AROM into flexion to 115 deg and full extension PROM to met those goals. Pt has improved strength of quads and HS to meet the goal of 4+/5. He is ambulating community distances with symmetrical pattern to meet that goal. Plan: D/C with HEP Procedure Charges Therapeutic Exercise 30 minutes: Yes
== END 2025-03-28 23:59 | disposition home or self-care (01) ==
LOC: CPTX 09:00
PROVIDERS: PCP Orthopaedic Surgery Adult Reconstructive Orthopaedic Surgery; Referring Provider Orthopaedic Surgery Adult Reconstructive Orthopaedic Surgery; Visit Provider Orthopaedic Surgery Adult Reconstructive Orthopaedic Surgery
DX: M25.562 Pain in left knee (principal); M25.561 Pain in right knee; Z96.653 Presence of artificial knee joint, bilateral
CPT/HCPCS: 97110

== ENCOUNTER 2025-10-06 12:58 | Outpatient (AMB) | payer MEDICARE, BC, SELFPAY ==
--- NOTE | 2025-10-06 13:13 | PD.ORTHCLVIS ---
Vital signs 10/06/25 13:14 Height 1.85 m Height Method Stated Weight 119.975 kg Weight Measurement Method Standing Scale BMI 35.0 BP 138/76 H Blood Pressure Source Automatic Cuff Blood Pressure Location Left Upper Arm Position Sitting Respiration 19 Pulse 87 Pulse Source Monitor Temp 97.9 F Temp Source Temporal Artery Scan Pulse Oximetry (%) 95 Oxygen Delivery Method Room Air Med/Allergies Allergies & Medications Allergies No Known Drug Allergies Allergy (Verified 10/06/25 13:14) Medication Reconciliation meloxicam 15 mg tablet 15 mg PO QDAY 10/03/24 [History Confirmed 10/06/25] acetaminophen 500 mg tablet (Acetaminophen Extra Strength) 1,000 mg (2 x 500 mg) PO Q6H PRN pain #90 tabs 01/12/25 [Rx Confirmed 10/06/25] aspirin 81 mg tablet,delayed release 81 mg PO BID #60 tabs 01/12/25 [Rx Confirmed 10/06/25] doxycycline hyclate 100 mg tablet 100 mg PO BID #14 tabs 01/12/25 [Rx Confirmed 10/06/25] Exam Exam Patient is in no acute distress and is cooperative with the examination today. Breathing is nonlabored. In no respiratory distress. Bilateral extremities were evaluated and demonstrates sensation intact to light touch. Palpable pedal pulses are present. No significant edema is present. Bilateral hips were examined. The patient has no pain with log roll of the hips. Internal rotation to 30 degrees and external rotation to 30 degrees is painless. Negative FADIR. Left knee incision is clean dry and intact., Range of motion is 0 to 100 degrees Right knee incisions clean dry and intact. Range of motion 0 to 100 degrees Bilateral knee x-rays demonstrates a cementless total knee replacement in good alignment and position Assessment and Plan Problem List (1) Degenerative arthritis of knee, bilateral: Status: Acute Plan: Patient is a 69-year-old male with bilateral knee pain and bilateral knee arthritis. He is doing well status post right total knee replacement. He is doing well and we will see him for routine follow-up Advanced Care Planning Discussion Advance care planning discussed with:: patient Office Procedures GNS Level of Care Nursing/Assessment Patient Status: Established Patient Nursing Assessment/Reassesment: Medication Reconciliation, Update PMH in EMR and Vital Signs Coordination of Care: Complex Care and Chronic Disease 1-5, Education Complex Pt/Fam, Consent,records obtained, informed consent, Results/Orders obtained and Staff clarify orders Established Patient Charge Established Patient Point Assignment: 95 Established Patient Point Charge: EP Level 3 (80-115) MA Intake Visit Data Collection New Patient or Established: Established Patient (seen at [facility] within 3 years) Reason for Visit:: 1 YEAR TKA FU Seen by Clinical Staff ONLY (RN/MA): No Verbal consent obtained for Telemed visit?: No Thoracic Surgeon Required: No PCP or OBGYN visit in last 3 months: Yes Hx Now: No Do You Feel Safe at Home: Yes Authorities Contacted: N/A Questionairres Past Medical History Past Medical History Have you ever been diagnosed with any of the following: Neurological Problems Seizures: No Cardiology Problems Congestive Heart Failure: No Respiratory Problems Chronic Obstructive Pulmonary Disease (COPD): No Smoking: No Smoking Exposure: No Stomache/Intestinal Problems Obesity: Yes Genital/Urinary Problems Renal Disease: No Benign Prostatic Hyperplasia: Yes Musculoskeletal Problems Arthritis: Yes Fractures: Yes (nose, marcial elbow, right wrist) Endocrine Problems Diabetes Mellitus Type 1: No Diabetes Mellitus Type 2: No Other Problems Hospitalization: Yes Shingles: No Blood Transfusions: No Blood Transfusion Reaction: No Anesthesia Reactions: No Measles: Yes Mumps: Yes Cancer: No Subjective Visit Visit for: follow up visit and knee Immunization / Flu Flu Vaccine in the Last 12 Months: Yes Flu Vaccine Exclusion Criteria: No Exclusion Criteria History of Present Illness Chief complaint: 6 WEEKS POST OP Yohannes is 1 year status post bilateral total knee replacement and is doing fantastic. He is doing well Personal History Occupation: DISABLED Red flag PMH: BMI BMI Counceling provided: Yes Pain Pain level (0-10): 0 Pain duration: COMES AND GOES Pain quality: dull Ambulatory data Ambulatory device: none Treatments Improvement with previous injections: No Improvement with PT: No Improvement with NSAIDS: no Review of Systems Review of Systems: All systems negative unless otherwise noted in HPI.
[2025-10-06 13:14] VITALS: BP 138/76; PULSE 87; RESP 19; TEMP 36.6; O2SAT 95; BMI 35.0
== END 2025-10-06 13:17 | disposition home or self-care (01) ==
LOC: HODSRG 12:58
PROVIDERS: Supervising Provider Orthopaedic Surgery Adult Reconstructive Orthopaedic Surgery; Visit Provider Orthopaedic Surgery Adult Reconstructive Orthopaedic Surgery
DX: M25.562 Pain in left knee (principal); M25.561 Pain in right knee; Z96.653 Presence of artificial knee joint, bilateral; E66.9 Obesity, unspecified; Z68.34 Body mass index [BMI] 34.0-34.9, adult
CPT/HCPCS: 99213; G0463